=== PATIENT | male | born 1965 | race Caucasian/White ===

== ENCOUNTER 2019-03-16 19:29 | Emergency (ER) | payer OTHER ==
--- NOTE | 2019-03-16 19:46 | Event Note ---
ED Screening Note Date of service: 03/16/19 Time: 19:43 ED Screening Note: This is a 54 y.o. M. that presents to the ER with laceration to left temporal scalp and facial abrasions s/p fall 30-40 minutes [employer]. Patient fell from steps at outside of home. + nausea - loc, visual changes, PMH of HTN This initial assessment/diagnostic orders/clinical plan/treatment(s) is/are subject to change based on patients health status, clinical progression and re- assessment by fellow clinical providers in the ED. Further treatment and workup at subsequent clinical providers discretion. Patient/guardian urged not to elope from the ED as their condition may be serious if not clinically assessed and m anaged. Initial orders include: CT of head
--- NOTE | 2019-03-16 20:28 | Event Note ---
Date of service: 03/16/19 Face to Face: This is a 54-year-old gentleman presenting with left forehead/temporal laceration after mechanical trip and fall while consuming alcohol. He is intoxicated. He is protecting his airway at this time and moving 4 extremities. He denies pain elsewhere with the exception of his scalp. He is pleasant and cooperative. His to family members are at the bedside. Plan is to check CT scan brain, cervical spine, repair laceration. Vital Signs 03/16/19 19:39 Temperature 98.4 F Pulse Rate 80 Respiratory 16 Rate Blood Pressure 142/93 O2 Sat by Pulse 96 Oximetry
[2019-03-16] MEDS ORDERED: D5W/0.45% NACL 1,000 ML IV ONE (20:34)
[2019-03-16] MEDS ORDERED: SODIUM CHLORIDE 0.9% IRR 500 ML BOTTLE IR ONE (20:35)
[2019-03-16] MEDS ORDERED: LIDOCAINE 2%/EPINEPHRINE 1:100,000 VIAL (20 ML) INFILTRATI ONE (20:35)
[2019-03-16] MEDS ORDERED: TETANUS,DIPH,PERTUSS(ACELL) VACCINE 0.5 ML SYRINGE IM ONE (20:35)
--- NOTE | 2019-03-16 21:06 | Emergency Department Report ---
ED Fall HPI - General Chief Complaint: Fall Stated Complaint: FALL Time Seen by Provider: 03/16/19 19:41 Source: patient Mode of arrival: Ambulatory - History of Present Illness Initial Comments: This is a 54-year-old male that is brought by sons nontoxic, well nourished in appearance, no acute signs of distress presents to the ED with c/o of trip and fall from several steps today. Patient is alert and oriented. Patient did state he had several alcoholic drinks prior to fall. Patient stated does have headache but denies any pain in the neck, back, chest or abdomen. Patient denies any other injuries or trauma. Patient describes headache as aching to the left temporal lobe area. Patient does have a laceration that is about 5 cm. Denies any loss of consciousness. Patient denies any chest pain, shortness of breath, numbness, tingling, fever, chills, nausea, vomiting or urinary symptoms. Patient denies any allergies. Patient does have past medical history of he does have hypertension. MD Complaint: fall -: This evening Fall From: down stairs (#) (5) Fall Witnessed: yes, by family Place Fall Occurred: home Loss of Consciousness: none Prolonged Down Time?: no Symptoms Prior to Fall: none Location: head Severity: mild Severity scale (0 -10): 8 Quality: aching Context: tripped/slipped, alcohol use Associated Symptoms: headache. denies: neck pain, numbness, weakness, chest paint, shortness of breath, abdominal pain, hematuria, unable to walk, lightheaded, vertigo, confusion - Related Data Previous Rx's Medication Instructions Recorded Last Taken Type Ibuprofen [Motrin] 600 mg PO Q8H PRN #20 tablet 03/16/19 Unknown Rx Sulfamethoxazole/Trimethoprim 1 each PO BID #14 tablet 03/16/19 Unknown Rx [Bactrim DS TAB] Allergies Allergy/AdvReac Type Severity Reaction Status Date / Time No Known Allergies Allergy Unverified 03/16/19 19:44 ED Review of Systems ROS: Stated complaint: FALL Other details as noted in HPI Constitutional: denies: chills, fever Eyes: denies: eye pain, eye discharge, vision change ENT: denies: ear pain, throat pain Respiratory: denies: cough, shortness of breath, wheezing Cardiovascular: denies: chest pain, palpitations Endocrine: no symptoms reported Gastrointestinal: denies: abdominal pain, nausea, diarrhea Genitourinary: denies: urgency, dysuria Musculoskeletal: denies: back pain, joint swelling, arthralgia Skin: denies: rash, lesions Neurological: headache. denies: weakness, paresthesias Psychiatric: denies: anxiety, depression Hematological/Lymphatic: denies: easy bleeding, easy bruising ED Past Medical Hx - Past Medical History Previous Medical History?: Yes Hx Hypertension: Yes - Surgical History Past Surgical History?: Yes Additional Surgical History: Bilateral ears - Social History Smoking Status: Never Smoker Substance Use Type: Alcohol - Medications Home Medications: Home Medications Medication Instructions Recorded Confirmed Last Taken Type Ibuprofen [Motrin] 600 mg PO Q8H PRN #20 tablet 03/16/19 Unknown Rx Sulfamethoxazole/Trimethoprim 1 each PO BID #14 tablet 03/16/19 Unknown Rx [Bactrim DS TAB] ED Physical Exam - General Limitations: No Limitations General appearance: alert, in no apparent distress - Head Head exam: Present: atraumatic, normocephalic - Expanded Head Exam Expanded Head exam: Present: laceration 1 - 5 cm laceration - Eye Eye exam: Present: normal appearance, PERRL, EOMI - Neck Neck exam: Present: normal inspection, full ROM. Absent: tenderness, meningismus, lymphadenopathy - Respiratory Respiratory exam: Present: normal lung sounds bilaterally. Absent: respiratory distress, wheezes, rales, rhonchi, stridor, chest wall tenderness, accessory muscle use, decreased breath sounds, prolonged expiratory - Cardiovascular Cardiovascular Exam: Present: regular rate, normal rhythm, normal heart sounds. Absent: bradycardia, tachycardia, irregular rhythm, systolic murmur, diastolic murmur, rubs, gallop - GI/Abdominal GI/Abdominal exam: Present: soft, normal bowel sounds. Absent: distended, tenderness, guarding, rebound, rigid, diminished bowel sounds - Rectal Rectal exam: Present: deferred - Extremities Exam Extremities exam: Present: normal inspection, full ROM, normal capillary refill. Absent: tenderness - Back Exam Back exam: Present: normal inspection, full ROM. Absent: tenderness, CVA tenderness (R), CVA tenderness (L), muscle spasm, paraspinal tenderness, vertebral tenderness, rash noted - Neurological Exam Neurological exam: Present: alert, oriented X3, normal gait - Expanded Neurological Exam Expanded Patient oriented to: Present: person, place, time Cranial nerves: EOM's Intact: Normal Motor strength exam: RUE: 5, LUE: 5, RLE: 5, LLE: 5 Best Eye Response ([place]): (4) open spontaneously Best Motor Response (Piyush): (6) obeys commands Best Verbal Response ([place]): (5) oriented [place] Total: 15 - Psychiatric Psychiatric exam: Present: normal affect, normal mood. Absent: depressed, agitated, anxious, flat affect, manic, homicidal ideation, suicidal ideation - Skin Skin exam: Present: warm, dry, intact, normal color. Absent: rash ED Course Vital Signs 03/16/19 03/16/19 19:39 22:50 Temperature 98.4 F Pulse Rate 80 88 Respiratory 16 16 Rate Blood Pressure 142/93 Blood Pressure 127/67 [Left] O2 Sat by Pulse 96 99 Oximetry - Reevaluation(s) Reevaluation #1: 03/16/19 21:07 Patient is speaking in full sentences with no signs of distress noted. - Consultations Consultation #1: 03/16/19 21:07 Patient has been consulted with Dr. Burroughs about patient history, physical exam, and examined and screened patient and agrees to ED plan of care. - Laceration /Wound Repair Left Head Wound Location: head Wound Length (cm): 5 Wound's Depth, Shape: superficial Wound Explored: clean Irrigated w/ Saline (ccs): 40 Betadine Prep?: Yes Anesthesia: Lidocaine w/ Epi Volume Anesthetic (ccs): 3 (2% lidocaine w 1:100,000 epi) Wound Debrided: minimal Number of Sutures: 7 (kevin) Layer Closure?: No Sterile Dressing Applied?: Yes Progress: Under sterile field, I used Betadine to clean the area. I then used 40 mL of normal saline to flush the area. I then used 2% lidocaine with epi 1-100,000 and injected 3 mL to the wound. I then used stapler and total of 7 kevin has been placed. I then applied a sterile 4 x 4 with tape. Minimal bleeding noted but is under control. Patient tolerated procedure well with no signs of distress. ED Medical Decision Making - Lab Data Result diagrams: 03/16/19 20:43 03/16/19 20:43 - EKG Data Interpretation: normal EKG, other (EKG is normal sinus rhythm with no significant ST abnormalities.) 03/16/19 23:[address] Burroughs - Medical Decision Making This is a 54-year-old male that presents with laceration to scalp. Patient is currently stable and was examined by me. Labs are unremarkable. Patient is present with family and alert and oriented 3. Patient is stable to be discharged at this time. Family member stated they will just the patient home after discharge and will be present with patient after discharge. Patient however procedure well. Patient was instructed to return in 10 days for suture removal. [address] of cervical spine and head are unremarkable. EKG is normal sinus rhythm with no significant ST abnormalities. Patient will be discharged with Bactrim and Motrin. Patient was instructed to Follow-up with a primary care doctor in 3-5 days or if symptoms worsen and continue return to emergency room as soon as possible. At time of discharge, the patient does not seem toxic or ill in appearance. No acute signs of distress noted. Patient agrees to discharge treatment plan of care. No further questions noted by the patient. - Differential Diagnosis intracoronal hemorrhage, cervical fracture, encephalopathy, ETOH, contusion Critical care attestation.: If time is entered above; I have spent that time in minutes in the direct care of this critically ill patient, excluding procedure time. ED Disposition Clinical Impression: ETOH abuse Head contusion Qualifiers: Encounter type: initial encounter Contusion of head detail: scalp Qualified Code(s): S00.03XA - Contusion of scalp, initial encounter Scalp laceration Qualifiers: Encounter type: initial encounter Qualified Code(s): S01.01XA - Laceration without foreign body of scalp, initial encounter Fall Qualifiers: Encounter type: initial encounter Qualified Code(s): W19.XXXA - Unspecified fall, initial encounter Disposition: DC-01 TO HOME OR SELFCARE Is pt being admited?: No Does the pt Need Aspirin: No Condition: Stable Instructions: Laceration (ED), Staple Care (ED) Additional Instructions: Follow-up with a primary care doctor in 3-5 days or if symptoms worsen and continue return to emergency room as soon as possible. Return in 10 days for staple removal. Prescriptions: Sulfamethoxazole/Trimethoprim [Bactrim DS TAB] 1 each PO BID #14 tablet Ibuprofen [Motrin] 600 mg PO Q8H PRN #20 tablet PRN Reason: Pain Referrals: PRIMARY CARE, [Primary Care Provider] - 3-5 Days DAKOTAH MINOR MD [Staff Physician] - 3-5 Days [facility] [Outside] - 3-5 Days [facility] [Outside] - 3-5 Days Forms: Work/School Release Form(ED)
[2019-03-16 21:10] LABS: Hematocrit 39.3 % (35.5-45.6); Hemoglobin 13.4 gm/dl (11.8-15.2); Mean Corpuscular HGB Conc 34 % (32-34); Mean Corpuscular Volume 90 fl (84-94); Platelet Count 199 K/mm3 (140-440); Red Blood Count 4.38 M/mm3 (3.65-5.03); Red Cell Distribution Width 13.3 % (13.2-15.2)
[2019-03-16 21:33] LABS: Alanine Aminotransferase 16 units/L (7-56); Albumin 4.6 g/dL (3.9-5); BUN/Creatinine Ratio 13; Blood Urea Nitrogen 10 mg/dL (9-20); Calcium 8.7 mg/dL (8.4-10.2); Hemolysis Index 6
[2019-03-16] MEDS ORDERED: SODIUM CHLORIDE 0.9% 1000 ML 1,000 ML IV ONE (21:49)
--- NOTE | 2019-03-16 22:25 | Cat Scan Report ---
CT head without contrast INDICATION : Headache following fall. TECHNIQUE: Axial imaging performed from the skull apex through the skull base without the use of con trast. All CT examinations performed at this facility utilize dose modulation, iterative reconstruct ion or weight-based dosing, when appropriate, to reduce radiation dose to as low as reasonably achiev able. COMPARISON: None FINDINGS: No acute intracranial hemorrhage or parenchymal abnormality. Ventricles are normal in si ze and appear symmetric. Soft tissues including the orbits appear normal. No acute osseous abnorm ality. Sinuses and mastoid air cells are clear. IMPRESSION: No acute intracranial abnormality. Signer Name: John Peacock MD Signed: 03/16/2019 10:20 PM Workstation Name: [id number]
--- NOTE | 2019-03-16 22:31 | Cat Scan Report ---
CT cervical spine without contrast INDICATION: Cervical spine pain following injury. TECHNIQUE: Axial imaging performed through the cervical spine without the use of contrast. Sagittal and coronal reconstructed images were also reviewed. All CT scans at this location are performed us ing CT dose reduction for ALARA by means of automated exposure control. COMPARISON: None FINDINGS: Alignment: Spinal alignment is normal. Bones: There is no acute osseous abnormality. Mild multilevel discogenic DJD is present. Soft tissues: No acute or significant incidental soft tissue abnormality. IMPRESSION: No acute abnormality. Signer Name: John Peacock MD Signed: 03/16/2019 10:27 PM Workstation Name: [id number]
[2019-03-16 22:51] VITALS: BP 127/67
--- NOTE | 2019-03-28 16:10 | Emergency Department Report ---
Suture/Staple Removal - [facility] Chief Complaint: Fall Stated Complaint: FALL Time Seen by Provider: 03/16/19 19:41 ED Review of Systems ROS: Stated complaint: FALL Other details as noted in HPI Constitutional: denies: chills, fever Eyes: denies: eye pain, eye discharge, vision change ENT: denies: ear pain, throat pain Respiratory: denies: cough, shortness of breath, wheezing Cardiovascular: denies: chest pain, palpitations Endocrine: no symptoms reported Gastrointestinal: denies: abdominal pain, nausea, diarrhea Genitourinary: denies: urgency, dysuria Musculoskeletal: denies: back pain, joint swelling, arthralgia Skin: denies: rash, lesions Neurological: headache. denies: weakness, paresthesias Psychiatric: denies: anxiety, depression Hematological/Lymphatic: denies: easy bleeding, easy bruising ED Past Medical Hx - Past Medical History Previous Medical History?: Yes Hx Hypertension: Yes - Surgical History Past Surgical History?: Yes Additional Surgical History: Bilateral ears - Social History Smoking Status: Never Smoker Substance Use Type: Alcohol - Medications Home Medications: Home Medications Medication Instructions Recorded Confirmed Last Taken Type Ibuprofen [Motrin] 600 mg PO Q8H PRN #20 tablet 03/16/19 Unknown Rx Sulfamethoxazole/Trimethoprim 1 each PO BID #14 tablet 03/16/19 Unknown Rx [Bactrim DS TAB] Suture Removal Exam - Exam General: Vital signs noted. No distress. Alert and acting appropriately. Other Systems: All other systems reviewed and are unremarkable. ED Course Vital Signs 03/16/19 03/16/19 19:39 22:50 Temperature 98.4 F Pulse Rate 80 88 Respiratory 16 16 Rate Blood Pressure 142/93 Blood Pressure 127/67 [Left] O2 Sat by Pulse 96 99 Oximetry Critical care attestation.: If time is entered above; I have spent that time in minutes in the direct care of this critically ill patient, excluding procedure time. ED Disposition Disposition: DC- TO HOME OR SELFCARE Condition: Stable Instructions: Laceration (ED), Staple Care (ED) Additional Instructions: Follow-up with a primary care doctor in 3-5 days or if symptoms worsen and continue return to emergency room as soon as possible. Return in 10 days for staple removal. Prescriptions: Sulfamethoxazole/Trimethoprim [Bactrim DS TAB] 1 each PO BID #14 tablet Ibuprofen [Motrin] 600 mg PO Q8H PRN #20 tablet PRN Reason: Pain Referrals: [facility] [Outside] - 3-5 Days [facility] [Outside] - 3-5 Days PRIMARY CAREMD [Primary Care Provider] - 3-5 Days DAKOTAH MINOR MD [Staff Physician] - 3-5 Days Forms: Work/School Release Form(ED)
== END 2019-03-16 23:39 | disposition home or self-care (01) ==
LOC: ED 19:29
DX: S01.01XA Laceration without foreign body of scalp, initial encounter (principal); F17.200 Nicotine dependence, unspecified, uncomplicated; I10 Essential (primary) hypertension; F10.10 Alcohol abuse, uncomplicated; W10.9XXA Fall (on) (from) unspecified stairs and steps, initial encounter; Y93.89 Activity, other specified; Y92.89 Other specified places as the place of occurrence of the external cause; Y99.8 Other external cause status
CPT/HCPCS: 12002; 36415; 70450; 72125; 80053; 82550; 83735; 85027; 90471; 90715; 93005; 93010; 99284; J7030; 80320; G0480